=== PATIENT | male | born 1935 | race Asian ===

== ENCOUNTER → 2018-04-10 10:07 | Emergency (ER) | payer MEDICARE, MEDICAID ==
[~2018-04-10 10:07] MED LIST: Iohexol 350* (CONTRAST) 500 ML MDV IV ONE; NS 0.9% 1000 ML* 1,000 ML IV ONE
--- NOTE | 2018-04-10 11:10 | ED ---
Dizziness - HPI Summary HPI Summary: This patient is an 83 year old M presenting to [facility] accompanied by his daughter , who is translated for the patient, with a chief complaint of dizziness since this AM upon waking. Pt endorses right side parietal SWAIN and N/V. He denies diarrhea, CP, and abd pain. He denies sx last night. Pt endorses that any movement aggravates sx. His daughter endorses that his eyes can move in both directions at baseline, but today they cannot look to the right. 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 Rx ASA, PMHx AFib. 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 Last Known Well Date: 04/09/18 PM Onset/Duration: Still Present, Suddenly Timing: Constant - Allergies/Home Medications Allergies/Adverse Reactions: Allergies Allergy/AdvReac Type Severity Reaction Status Date / Time Penicillins Allergy Unknown Verified 04/10/18 10:11 Reaction Details Home Medications: Home Medications Aspirin 81 mg CHEW TAB* 81 mg PO DAILY 04/10/18 [History Confirmed 04/10/18] PMH/Surg Hx/FS Hx/Imm Hx Endocrine/Hematology History: Denies: Hx Sickle Cell Disease Cardiovascular History: Reports: Hx Atrial Fibrillation GI History: Denies: Hx Ileostomy History: Denies: Hx Dialysis Sensory History: Denies: Hx Legally Blind, Hx Deafness Opthamlomology History: Denies: Hx Legally Blind EENT History: Denies: Hx Deafness Neurological History: Reports: Hx CVA - 30 years ago (from 2018) Psychiatric History: Denies: Hx Autism, Hx Schizophrenia Infectious Disease History: No Infectious Disease History: Denies: Traveled Outside the [place] in Last 30 Days - Family History Known Family History: Negative: Blood Disorder - Social History Occupation: Retired Lives: With Family Alcohol Use: None Hx Substance Use: No Substance Use Type: Reports: None Hx Tobacco Use: No Smoking Status (MU): Never Smoked Tobacco Review of Systems Negative: Fever Negative: Chest Pain Positive: Vomiting, Nausea. Negative: Abdominal Pain, Diarrhea Positive: no symptoms reported Neurological: Other - dizziness Positive: Headache - Right parietal All Other Systems Reviewed And Are Negative: Yes Physical Exam - Summary Physical Exam Summary: General: well-appearing, no pain distress, does not speak Taiwanese, daughter is translating for him Skin: warm, color reflects adequate perfusion, dry Head: normal Eyes: ALEXIS, left-beating nystagmus, eyes/vision not crossing over midline to the right, vision loss on right side. ENT: normal Neck: supple, non-tender Respiratory: CTA, breath sounds present Cardiovascular: RRR Abdomen: soft, non-tender Bowel: present Musculoskeletal: normal, strength/ROM intact Neurological: sensory/motor intact, A&O x3, NIH = 3 Psychological: affect/mood appropriate Triage Information Reviewed: Yes Vital Signs On Initial Exam: Initial Vitals Temp Pulse Resp BP Pulse Ox 97.0 F 79 15 148/99 95 04/10/18 10:10 04/10/18 10:10 04/10/18 10:10 04/10/18 10:10 04/10/18 10:10 Vital Signs Reviewed: Yes Diagnostics - Vital Signs Vital Signs Temp Pulse Resp BP Pulse Ox 04/10/18 10:10 97.0 F 79 15 148/99 95 - Laboratory Result Diagrams: 04/10/18 12:47 04/10/18 11:37 Lab Statement: Any lab studies that have been ordered have been reviewed, and results considered in the medical decision making process. - Radiology CXR Xray Interpretation: Positive (See Comments) Radiology Interpretation Completed By: Radiologist - LINEAR ATELECTASIS OF THE LEFT LUNG BASE. Dr. Paz has reviewed this report. - CT CTA head/neck CT Interpretation: Positive (See Comments) CT Interpretation Completed By: Radiologist - 1. OCCLUSION OF THE RIGHT VERTEBRAL ARTERY. THIS HAS AN ACUTE APPEARANCE. THIS INCLUDES THE ORIGIN OF THE RIGHT PICA, WHICH IS NOT VISUALIZED. 2. OCCLUSION OF THE LEFT INTERNAL CAROTID ARTERY OF UNCERTAIN ACUITY. 3. ATHEROSCLEROSIS. 4. EMPHYSEMA WITH A 1 CM SPICULATED NODULE OF THE RIGHT UPPER LOBE. THE RECOMMENDATIONS FOR FOLLOWUP AND MANAGEMENT OF AN INCIDENTALLY DETECTED PULMONARY NODULE GREATER THAN 8 MM IN SIZE, IN A PATIENT WITHOUT A HISTORY OF MALIGNANCY, INCLUDE FOLLOWUP CT AT 3 MONTHS, PET-CT, AND/OR BIOPSY. Dr. Paz has reviewed this report. - EKG 1108 Cardiac Rate: NL - 70 EKG Rhythm: Atrial Fibrillation ST Segment: Non-Specific EKG Interpretation: AFib, non-specific T wave changes in anterolateral leads. National Institutes Of Health - NIH Scale Level of Consciousness: Alert/Keenly Responsive Ask Patient the Month and His/Her Age: Both Correct Ask Pt to Open/Close Eyes and Marketing Research Coordinator/Release Non-Paretic Hand: Both Correctly Best Gaze (Only Horizontal Eye Movement): Partial Gaze Palsy Visual Field Testing: Complete Hemianopia Facial Paresis-Pt to Smile & Close Eyes or Grimace Symmetry: Normal/Symmetrical Motor Function - Right Arm: No Drift-Holds 10 Seconds Motor Function - Left Arm: No Drift-Holds 10 Seconds Motor Function - Right Leg: No Drift-Holds 10 Seconds Motor Function - Left Leg: No Drift-Holds 10 Seconds Limb Ataxia-Must be out of Proportion to Weakness Present: Absent Sensory (Use Pinprick to Test Arms/Legs/Trunk/Face): Normal Best Language (Describe Picture, Name Items): No Aphasia Dysarthria (Read Several Words): Normal Extinction and Inattention: No Abnormality Total Score: 3 Dizzy Course/Dx - Course Course Of Treatment: DR YANG, NEUROLOGY, SAW THE PATIENT IN THE AND HE DISCUSSED THE CASE WITH DR HERBERT WHO ACCEPTS THE PATIENT IN TRANSFER. - Diagnoses Provider Diagnoses: CVA (cerebral vascular accident), Occlusion of right vertebral artery - Provider Notifications Discussed Care Of Patient With: Rush Yang Time Discussed With Above Provider: 11:00 Instructed by Provider To: Other - suggested CTA, call him back with results. - Critical Care Time Critical Care Time: 30-74 min Discharge - Sign-Out/Discharge Documenting (check all that apply): Patient Departure - Transfer to [facility] - Discharge Plan Condition: Stable Disposition: TRANS HIGHER LVL OF CARE FAC Referrals: Ortiz Saab MD [Primary Care Provider] - - Billing Disposition and Condition Condition: STABLE Disposition: Trans Higher Lvl of Care Fac - Attestation Statements Document Initiated by Scribe: Yes Documenting Scribe: Baron Salgado Provider For Whom Cece is Documenting (Include Credential): Dr. Alberto Paz MD Scribe Attestation: Baron Monroe scribed for Dr. Alberto Paz MD on 04/10/18 at 1427. Scribe Documentation Reviewed: Yes Provider Attestation: The documentation as recorded by the Baron spann accurately reflects the service I personally performed and the decisions made by me, Dr. Alberto Paz MD Consult Consult: [id number] Dr. Yang: recommends speaking to [facility] about transfer.
[2018-04-10 11:58] LABS: INR 0.92 (0.77-1.02)
[2018-04-10 12:08] LABS: EGFR Non-African American 76.8 (>60)
--- NOTE | 2018-04-10 12:15 | RAD ---
HISTORY: Neurological Changes/Code Guillaume COMPARISONS: None VIEWS: 1: frontal portable view of the chest at 11:29 AM FINDINGS: LINES AND TUBES: None. CARDIOMEDIASTINAL SILHOUETTE: The cardiomediastinal silhouette is normal for portable technique. PLEURA: The costophrenic angles are sharp. No pleural abnormalities are noted. LUNG PARENCHYMA: There is patchy linear opacification of the left lung base. ABDOMEN: The upper abdomen is clear. There is no subphrenic gas. BONES AND SOFT TISSUES: No bone or soft tissue abnormalities are noted. IMPRESSION: LINEAR ATELECTASIS OF THE LEFT LUNG BASE.
[2018-04-10 12:55] LABS: ABS Basophils 0 10^3/ul (0-0.2); ABS Eosinophils 0 10^3/ul (0-0.6); ABS Lymphocytes 0.7 10^3/ul (1.0-4.8); ABS Monocytes 0.2 10^3/ul (0-0.8); ABS Neutrophils 5.6 10^3/ul (1.5-7.7); ABS Nucleated RBC 0 10^3/ul; Eosinophil % 0.1 % (0-6); Hematocrit 43 % (42-52); Hemoglobin 14.1 g/dl (14.0-18.0); Lymphocyte % 10.5 % (25-47); Mean Corpuscular HGB Conc 33 g/dl (31-36); Mean Corpuscular Hemoglobin 32 pg (27-31); Mean Corpuscular Volume 96 fL (80-94); Mean Platelet Volume 7.1 um3 (7.4-10.4); Nucleated Red Blood Cells % 0.1; Platelet Count 131 10^3/ul (150-450); Red Blood Count 4.43 10^6/ul (4.00-5.40); Red Cell Distribution Width 14 % (10.5-15); White Blood Count 6.6 10^3/ul (3.5-10.8)
--- NOTE | 2018-04-10 13:02 | RAD ---
HISTORY: dizzy,lt beating nystagmus,eyesnotcrossingmidline, right homonymous hemianopsia COMPARISONS: None TECHNIQUE: Multiple contiguous axial CT scans were obtained of the head, before and after, and of the neck after the administration of nonionic intravenous contrast timed to the systemic arterial phase of contrast enhancement. Coronal and sagittal multiplanar reformations are submitted for review. Multiple 3-D maximum intensity projection reconstructions are also submitted for review. FINDINGS: CTA NECK: AORTIC ARCH: There is calcific atherosclerotic disease of the aortic arch, without ostial or proximal stenosis of the cephalic great vessels. There is a normal three-vessel branching pattern. RIGHT VERTEBRAL ARTERY: There is minimal flow-related enhancement of the V1 segment of the right vertebral artery which drops out of the V1-V2 junction and extends to the vertebrobasilar junction. LEFT VERTEBRAL ARTERY: The left vertebral artery is patent along its course, without stenosis. DOMINANCE: The left RIGHT COMMON CAROTID ARTERY: The right common carotid artery is patent. The right carotid bifurcation occurs at C3-C4. RIGHT INTERNAL CAROTID ARTERY: There is no right internal carotid artery stenosis by NASCET criteria. RIGHT EXTERNAL CAROTID ARTERY: The right external carotid artery is unremarkable. LEFT COMMON CAROTID ARTERY: The left common carotid artery is patent. The left carotid bifurcation occurs at C3-C4 LEFT INTERNAL CAROTID ARTERY: There is occlusion of left internal carotid artery beginning at the bifurcation extending to the level of the ICA terminus LEFT EXTERNAL CAROTID ARTERY: The left external carotid artery is unremarkable. VENOUS CIRCULATION: The venous system is unremarkable. SALIVARY GLANDS: The parotid glands, submandibular glands, sublingual glands are normal. NASAL CAVITY/NASOPHARYNX: The nasal cavity and nasopharynx are normal. ORAL CAVITY/OROPHARYNX: The oral cavity and oropharynx are unremarkable. LARYNGEAL APPARATUS/HYPOPHARYNX: The laryngeal apparatus and hypopharynx are normal. UPPER AIRWAY/UPPER ESOPHAGUS: The visualized upper airway and esophagus are normal. LUNG APICES: There is biapical centrilobular emphysematous change with a spiculated nodule of the right upper lobe measuring 1 cm in size. THYROID GLAND: The thyroid gland is normal. LYMPH NODES: There is no lymphadenopathy by size criteria. BONES AND SOFT TISSUES: No bone or soft tissue abnormalities are noted. CTA HEAD: INTRACRANIAL CIRCULATION: As noted above, there is occlusion of the right vertebral artery extending to the vertebrobasilar junction, and occlusion of the left ICA extending to the terminus. The right vertebral artery occlusion includes the origin of the right PICA which is not clearly visualized. Elsewhere, there is no aneurysm, vascular malformation, written, or stenosis of the visualized venous circulation. The anterior communicating artery complex is clear. Bilateral posterior communicating arteries are identified. VENOUS CIRCULATION: The venous system is unremarkable. PERFUSION: There is no obvious parenchymal perfusion deficit. HEMORRHAGE/INFARCT: There is no hemorrhage or acute infarct. MASSES/SHIFT: There is no mass or shift. EXTRA-AXIAL SPACES: There are no extra-axial fluid collections. SULCI AND VENTRICLES: There is diffuse and proportional enlargement of the sulci and ventricles. CEREBRUM: There is hypoattenuation of the periventricular and subcortical white matter. BRAINSTEM: There are no focal parenchymal abnormalities. CEREBELLUM: There are no focal parenchymal abnormalities. PARANASAL SINUSES: There is mucosal thickening of the right maxillary sinus with associated osteitis. ORBITS: The orbits are unremarkable. BONES AND SOFT TISSUE: No bone or soft tissue abnormalities are noted. OTHER: There is no abnormal enhancement. IMPRESSION: 1. OCCLUSION OF THE RIGHT VERTEBRAL ARTERY. THIS HAS AN ACUTE APPEARANCE. THIS INCLUDES THE ORIGIN OF THE RIGHT PICA, WHICH IS NOT VISUALIZED. 2. OCCLUSION OF THE LEFT INTERNAL CAROTID ARTERY OF UNCERTAIN ACUITY. 3. ATHEROSCLEROSIS. 4. EMPHYSEMA WITH A 1 CM SPICULATED NODULE OF THE RIGHT UPPER LOBE. THE RECOMMENDATIONS FOR FOLLOWUP AND MANAGEMENT OF AN INCIDENTALLY DETECTED PULMONARY NODULE GREATER THAN 8 MM IN SIZE, IN A PATIENT WITHOUT A HISTORY OF MALIGNANCY, INCLUDE FOLLOWUP CT AT 3 MONTHS, PET-CT, AND/OR BIOPSY. NOTES: SIZE = AVERAGE LENGTH AND WIDTH; HIGH RISK IS DEFINED A HISTORY OF SMOKING OR OTHER KNOW RISK FACTORS FOR LUNG CANCER; LOW RISK IS DEFINED MINIMAL OR ABSENT HISTORY OF SMOKING OR OTHER KNOWN RISK FACTORS. Rebeka, H, TANA Suggs, NICHO Negron, et al (2017) "Guidelines for Management of Incidental Pulmonary Nodules Detected on CT Images: From the Fleischner Society 2017." Radiology; 284(1): 228-243. doi:10.1148/radiol.[id number] Preliminary findings were discussed with Dr. Paz at approximately 12:57 PM on April 10, 2018 CPT II Codes: 3100F
[2018-04-10 14:42] VITALS: BP 155/109
--- NOTE | 2018-04-10 20:31 | CONS ---
CC: Dr. Ortiz Saab * CONSULTATION REPORT: DATE OF CONSULT: 04/10/18 LOCATION: Current location is ER, bed 7. PRIMARY CARE PROVIDER: Dr. Ortiz Saab. HISTORY OF PRESENT ILLNESS: I was called down to the ER to evaluate Mr. Fontana, an 83- year-old gentleman, who has a history of atrial fibrillation, previously on anticoagulation, but stopped it due to stomach problems. He reported a history of a stroke 30 years ago. He was on an aspirin 81 mg a day at home. He presented to the hospital this morning after developing acute onset dizziness. There was some confusion about last normal. Initially, it was reported that his last normal was last night before he went to bed. Upon further questioning of his daughter, it appears that he may have been normal when he first woke up at 6 a.m., although this is unclear. He subsequently developed acute onset of dizziness with nausea and vomiting and some difficulty with his vision. He denied any initial headache, but currently has a mild-to- moderate headache that is global in nature. He has also had some nausea and vomiting associated with any head movements. He denied any recent illnesses and abdominal pain, diarrhea. He denies any fevers or chills. He has had no loss of vision per se. He has no double vision. He notes no focal numbness, tingling, or weakness in his body. He notes no chest pain or shortness of breath, dyspnea on exertion. Otherwise, he has been in his usual state of health. He was brought to the ER this morning after his symptoms did not resolve. He notes that when he looks to the right or the left, his symptoms are worse. Of note, he only speaks [place]er. His daughter was at the bedside and able to translate for me. She is fluent in Sami. PAST MEDICAL HISTORY: As noted above. MEDICATIONS: Home medications: 81 mg aspirin q. day. ALLERGIES: To PENICILLIN. FAMILY HISTORY: Unknown. SOCIAL HISTORY: He is retired. He is from [place]. He has been here for years. Reported travel 30 days ago, but unclear where. No tobacco or alcohol use. REVIEW OF SYSTEMS: His review of systems in 14-organ systems as noted above, otherwise negative. PHYSICAL EXAM: He is currently in AFib, blood pressure 145/105 to 138/92, pulse of 83, respiratory rate of 18, pulse ox% 97%. In general, he is a well- nourished, well-developed gentleman, lying in his hospital bed. He is pleasant , well dressed, well groomed. HEENT: He is normocephalic, atraumatic. Sclerae are anicteric. Mucous membranes are moist. Oropharynx is clear. Nares are patent. Neck is supple. No thyromegaly. No carotid bruits. No meningismus. Chest: Clear to auscultation bilaterally. Cardiovascular: Irregularly irregular. No murmurs. Abdomen: Nontender. Extremities: No clubbing, cyanosis, or edema. On neurologic exam, he is awake, alert. He is oriented x3. His speech is fluent. He speaks [place]er only, but has his daughter to translate. He follows all commands. Cranial nerves II through XII : His pupils were equally round and reactive to light. He appears to have an [place] with inability to look to the right past midline. His conversions appear to be intact. Face is symmetric. Facial sensation is intact. Hearing is intact bilaterally. He has upward gaze nystagmus, rotatory in nature. His tongue is midline. Palate raises symmetrically. Motor Exam: Spontaneously moving all extremities antigravity, 5/5 throughout. Tone and bulk are both normal. No drift is apparent in the upper and lower extremities. [id number] , rapid alternating movements, and [id number] were all within normal limits. No tremor was appreciated. No dysdiadochokinesia or dysmetria. Sensation is intact to light and pinprick throughout. No extinguishing with double simultaneous stimulation. Gait: I did not test him at this time. DTRs are 1+ and symmetric in the upper and lower extremities, equivocal Babinski's. DIAGNOSTIC STUDIES: He had a CT angiogram done, which showed what appears to be an acute occlusion of the right vertebral artery, which includes the origin of the right RIBBING MACHINE OPERATOR, which is not visualized; occlusion of the left internal carotid artery of uncertain acuity; and 1 cm spiculated nodule of the right upper lobe, which recommended followup. PLAN: Based on this, I contacted [facility]. I spoke with Dr. Sun and relayed the history. He recommended that we transport him to [facility] by helicopter. The patient will be transferred there for further possible intervention. No further workup done at this point. I gave the daughter my number and told her to call my office once she returns to set up a followup appointment. [id number]/CPS #: [id number]
== END | disposition short-term general hospital (02) ==
LOC: ED 10:07
DX: I63.9 Cerebral infarction, unspecified (principal); I65.01 Occlusion and stenosis of right vertebral artery; I48.91 Unspecified atrial fibrillation
CPT/HCPCS: 36415; 70496; 70498; 71045; 80053; 80061; 83605; 84484; 85025; 85610; 85730; 86140; 86850; 86900; 86901; 93005; 96361; 96374; 99285; Q9967